=== PATIENT | female | born 1945 | race Caucasian/White ===

== ENCOUNTER 2022-06-10 14:06 | Emergency (ER) | payer MEDICARE, OTHER ==
[~2022-06-10] VITALS: Ht 154.9 cm; Wt 68.6 kg
[~2022-06-10 14:06] MED LIST: LISI10TA22
[2022-06-10 14:08] VITALS: BP 164/80
== END 2022-06-10 14:38 | disposition home or self-care (01) ==
LOC: M ED 14:06
DX: Z48.02 Encounter for removal of sutures (principal)

== ENCOUNTER → 2023-06-28 | Outpatient (REF) | payer MEDICARE, OTHER | LOC: M LAB REF 12:03 | PROVIDERS: ATTEND Physician Assistant Medical | DX: B34.9 Viral infection, unspecified (principal) ==